=== PATIENT | female | born 1980 | race Caucasian/White ===

== ENCOUNTER 2018-09-20 13:43 | Inpatient (IN) | payer OTHER ==
[2018-09-20] MEDS ORDERED: fentaNYL 100 MCG/2 ML INJ IVP ONE (14:47)
[2018-09-20] MEDS ORDERED: NS 1,000 ML IV ONE (14:47)
[2018-09-20 15:08] LABS: PLATELET COUNT 317 10^3/uL (150-400)
[2018-09-20] MEDS ORDERED: IOPAMIDOL (ISOVUE 370) 100 ML BTL IV ONE (16:14)
--- NOTE | 2018-09-20 16:22 | EDPHY ---
General - History Smoking Status: Never smoked Time Seen by Provider: 09/20/18 14:13 Narrative: CLINICAL IMPRESSION: Left lower quadrant abdominal pain ASSESSMENT/PLAN: 38-year-old female with a history of diabetes presents to the emergency department with left lower quadrant abdominal pain since last night, worsening throughout today and associated with nausea and 1 episode of emesis. No associated fever or chills. Hypertensive on arrival, no tachycardia, hypoxia, and she is nonseptic and nontoxic appearing. She does have significant left lower quadrant tenderness associated with guarding but no focal peritoneal findings. Labs show significant leukocytosis of 17 with left shift, no significant electrolyte imbalance or renal insufficiency. No evidence of UTI and she is not . No complaints of abnormal discharge. Pelvic ultrasound read by Radiology with no abnormality identified. CT scan ordered. Patient declined additional analgesics. Case was signed out to Natasha Butts at 5:[address] results. DIFFERENTIAL DX: Abdominal pain includes but not limited to urinary tract infection, pyelonephritis, infection, ectopic , salpingitis, TOA, ovarian torsion, ovarian cyst, endometriosis, uterine fibroids, acute appendicitis, acute diverticulitis, small-bowel obstruction, constipation ED PROCEDURES: See lab and/or imaging results below ED COURSE: For o'clock p.m.: Discussed ultrasound results with Dr. Paz. No acute abnormality identified, no ovarian torsion, ovarian cyst, or substantial amount of free fluid in the pelvis. Ultrasound results discussed with the patient. She is declining additional analgesics at this time. Will pursue CT scan. Notable leukocytosis on labs. No other electrolyte abnormality. Urine studies normal. Not . CHIEF COMPLAINT: Left lower quadrant abdominal pain HPI: 38-year-old female presents to the emergency department with complaints of left lower quadrant abdominal pain since late last night. pain has become worse and more constant today. This is associated with nausea and vomiting. No diarrhea. She had a small bowel movement this morning. No fever/chills. She is 2 wks late on her period but adamantly denies . no abnormal complaints or vaginal discharge. No UTI symptoms or flank pain. No history of kidney stones. She reports a history of possible endometriosis in the past but never had exploratory laparoscopic procedure to confirm. She has had several normal pelvic ultrasounds in the past. She has a past medical history of diabetes. She has never been told she has diverticulosis. PAST MEDICAL HISTORY: Diabetes See nurse/triage notes for additional history if applicable Pertinent Past Surgical History: None reported Family History: Noncontributory Social History: Otherwise healthy here with her significant other REVIEW OF SYSTEMS: All other systems negative Constitutional: No fever, no chills, appetite change. Cardiovascular: No chest pain, no palpitations. Respiratory: No cough, no shortness of breath. Gastrointestinal: Positive for abdominal pain, positive for vomiting, diarrhea. Genitourinary: No hematuria, dysuria, flank pain, pelvic pain Skin: No rashes, color change. PHYSICAL EXAM: General Appearance: Alert, oriented, appropriate, obese, cooperative, appears uncomfortable, nontoxic, VSS, no hypoxia. Respiratory: There are no retractions, lungs are clear to auscultation. Cardiac: Regular rate and rhythm, no murmurs or gallops. Gastrointestinal: Abdomen is soft, tender left lower quadrant with rebound tenderness. bowel sounds hypoactive, no masses/hernia Neurological: [ Alert and oriented x 3, CN 2-12 grossly intact Skin: Warm, dry, no rashes, no nodules on palpation. MEDICAL DECISION MAKING: Patient was seen independently. Secondary supervising physician at time of evaluation was Dr. Lane . Diagnosis: Left lower quadrant abdominal pain. New, requires workup Summary: See Assessment and Plan for summary of ED visit Clinical lab tests: ordered / reviewed. Independent visualization of images, tracing, or specimens: Yes. Decision to obtain medical records or history from someone other than the patient: no Review / Summarize previous medical records: None available Discussed patient with another provider: Radiology, ROGER Butts Patient Progress: stable at time of sign out to Natasha Butts. (Gigi Santos ) 6:45 p.m. I evaluated this patient. She has a moderately tender abdomen. I offered admission the hospital however she declines and is very much motivated to go home. I do think that she can succeed at home. Will give her IV antibiotics here and then switched to Augmentin. Discussed indications for returning such is unable to tolerate fluids or medications or worsening pain or fever. (Jigar Lane) Medical Decision Makin: Patient was turned over to myself by Gigi PEARSON. I introduced myself to the patient, patient is obese, very tender in the left lower quadrant with mild voluntary guarding. CT still pending at this time. 1844: Case discussed with radiologist, patient with acute sigmoid diverticulitis without evidence of abscess or perforation. There is free fluid noted in the pelvis with extensive inflammation down to the bladder wall. There is fullness at the level of the cervix with recommendation for follow-up with OBGYN and repeat Pap smear. Results discussed with Dr. Lane, he will evaluate this patient at this time. Rocephin and metronidazole ordered. 1905: Patient now febrile, will give Tylenol and Zofran. 193: On repeat examination the patient reports her pain is generally controlled however she continues to feel poorly. Will admit to the hospital for further observation and management. Abdominal exam reveals soft abdomen with tenderness in the left lower quadrant, no evidence of a surgical abdomen. Case discussed with Dr. Swain who will be the admitting physician. (Tish Butts) - Diagnostics Imaging Results: Imaging Impressions Pelvic/Renal Ultrasound 09/20/18 14:47 Impression: Normal ultrasound pelvis. Mild amount of nonspecific fluid around the left ovary is identified. Findings discussed with Gigi PEARSON at 16:00 hour, 09/20/2018. Abdomen CT 09/20/18 16:06 Impression: 1. Acute sigmoid colon diverticulitis. Clinical correlation and follow-up to assure resolution are recommended. 2. Inflammatory change involving the superior left lateral aspect of the urinary bladder, likely secondary to the contiguous inflamed colon. Correlation with urinalysis is suggested. 3. "Fullness" at the level of the cervix. Correlation with a Pap smear is suggested. 4. Hepatomegaly with moderate steatosis. Findings were discussed with Francis Butts PAC at 18:38, on 09/20/2018. - Objective Vital Signs: Initial Vital Signs Temperature (C) 36.8 C 09/20/18 14:01 Heart Rate 98 09/20/18 14:01 Respiratory Rate 18 09/20/18 14:01 Blood Pressure 142/84 H 09/20/18 14:01 O2 Sat (%) 93 09/20/18 14:01 O2 Delivery Mode Room Air Allergies/Adverse Reactions: ibuprofen Allergy (Verified 09/20/18 14:00) Laboratory Results: Laboratory Results 09/20/18 15:00 09/20/18 15:00 09/20/18 09/20/18 09/20/18 15:00 15:00 14:30 WBC 17.14 10^3/uL H 10^3/uL (3.80-9.50) RBC 4.92 10^6/uL 10^6/uL (4.18-5.33) Hgb 14.0 g/dL g/dL (12.6-16.3) Hct 41.1 % % (38.0-47.0) MCV 83.5 fL fL (81.5-99.8) MCH 28.5 pg pg (27.9-34.1) MCHC 34.1 g/dL g/dL (32.4-36.7) RDW 13.6 % % (11.5-15.2) Plt Count 317 10^3/uL 10^3/uL (150-400) MPV 10.3 fL fL (8.7-11.7) Neut % (Auto) 80.0 % H % (39.3-74.2) Lymph % (Auto) 15.5 % % (15.0-45.0) [place] % (Auto) 3.7 % L % (4.5-13.0) Eos % (Auto) 0.2 % L % (0.6-7.6) Baso % (Auto) 0.2 % L % (0.3-1.7) Nucleat RBC Rel Count 0.0 % % (0.0-0.2) Absolute Neuts (auto) 13.72 10^3/uL H 10^3/uL (1.70-6.50) Absolute Lymphs (auto) 2.65 10^3/uL 10^3/uL (1.00-3.00) Absolute Monos (auto) 0.63 10^3/uL 10^3/uL (0.30-0.80) Absolute Eos (auto) 0.04 10^3/uL 10^3/uL (0.03-0.40) Absolute Basos (auto) 0.04 10^3/uL 10^3/uL (0.02-0.10) Absolute Nucleated RBC 0.00 10^3/uL 10^3/uL (0-0.01) Immature Gran % 0.4 % % (0.0-1.1) Immature Gran # 0.06 10^3/uL 10^3/uL (0.00-0.10) Sodium 135 mEq/L mEq/L (135-145) Potassium 3.7 mEq/L mEq/L (3.5-5.2) Chloride 104 mEq/L mEq/L (97-110) Carbon Dioxide 21 mEq/l L mEq/l (22-31) Anion Gap 10 mEq/L mEq/L (6-14) BUN 8 mg/dL mg/dL (7-23) Creatinine 0.5 mg/dL L mg/dL (0.6-1.0) Estimated GFR > 60 Glucose 213 mg/dL H mg/dL (70-100) Calcium 9.0 mg/dL mg/dL (8.5-10.4) Urine Color YELLOW Urine Appearance CLEAR Urine pH 5.0 (5.0-7.5) Ur Specific [place] 1.022 (1.002-1.030) Urine Protein NEGATIVE (NEGATIVE) Urine Ketones TRACE H (NEGATIVE) Urine Blood NEGATIVE (NEGATIVE) Urine Nitrate NEGATIVE (NEGATIVE) Urine Bilirubin NEGATIVE (NEGATIVE) Urine Urobilinogen NEGATIVE EU EU (0.2-1.0) Ur Leukocyte Esterase NEGATIVE (NEGATIVE) Urine RBC NONE SEEN /hpf /hpf (0-3) Urine WBC 1-3 /hpf /hpf (0-3) Ur Epithelial Cells TRACE /lpf /lpf (NONE-1+) Urine Mucus TRACE /lpf /lpf (NONE-1+) Urine Glucose 3+ H (NEGATIVE) Urine Test 09/20/18 14:30 WBC RBC Hgb Hct MCV MCH MCHC RDW Plt Count MPV Neut % (Auto) Lymph % (Auto) [place] % (Auto) Eos % (Auto) Baso % (Auto) Nucleat RBC Rel Count Absolute Neuts (auto) Absolute Lymphs (auto) Absolute Monos (auto) Absolute Eos (auto) Absolute Basos (auto) Absolute Nucleated RBC Immature Gran % Immature Gran # Sodium Potassium Chloride Carbon Dioxide Anion Gap BUN Creatinine Estimated GFR Glucose Calcium Urine Color Urine Appearance Urine pH Ur Specific [place] Urine Protein Urine Ketones Urine Blood Urine Nitrate Urine Bilirubin Urine Urobilinogen Ur Leukocyte Esterase Urine RBC Urine WBC Ur Epithelial Cells Urine Mucus Urine Glucose Urine Test NEGATIVE Medications Given: Ondansetron HCl (Zofran) 4 mg IVP Q4 PRN PRN Reason: Nausea/Vomiting, Can't Take PO Stop: 03/19/19 19:05 Last Admin: 09/20/18 19:08 Dose: 4 mg Discontinued Medications Acetaminophen (Tylenol) 1,000 mg PO EDNOW ONE Stop: 09/20/18 19:07 Last Admin: 09/20/18 19:09 Dose: 1,000 mg Fentanyl (Sublimaze) 50 mcg IVP EDNOW ONE Stop: 09/20/18 14:48 Last Admin: 09/20/18 14:57 Dose: 50 mcg Sodium Chloride (Ns) 1,000 mls @ 0 mls/hr IV EDNOW ONE; Wide Open PRN Reason: Protocol Stop: 09/20/18 14:48 Last Admin: 09/20/18 14:57 Dose: 1,000 mls Ceftriaxone Sodium/Dextrose (Rocephin 1 Gm (Premix)) 50 mls @ 100 mls/hr IV EDNOW ONE PRN Reason: Protocol Stop: 09/20/18 19:13 Last Admin: 09/20/18 18:59 Dose: 50 mls Departure - Departure Clinical Impression: Diverticulitis of sigmoid colon Condition: Good
[2018-09-20] MEDS ORDERED: ACETAMINOPHEN 500 MG TAB ONE (19:04)
[2018-09-20] MEDS ORDERED: ONDANSETRON 4 MG/2 ML VIAL ONE (19:05)
[2018-09-20] MEDS ORDERED: ONDANSETRON 4 MG/2 ML VIAL IVP PRN ×2 (19:06→20:29)
[2018-09-20] MEDS ORDERED: ACETAMINOPHEN 500 MG TAB PO ONE (19:06)
[2018-09-20] MEDS ORDERED: HYDROCODONE/APAP 5/325 TAB PO PRN (20:29)
[2018-09-20] MEDS ORDERED: oxyCODONE IR 5 MG TAB PO PRN (20:29)
[2018-09-20] MEDS ORDERED: ZOLPIDEM TARTRATE 5 MG TAB PO PRN (20:29)
[2018-09-20] MEDS ORDERED: ACETAMINOPHEN 325 MG TAB PO PRN (20:29)
[2018-09-20] MEDS ORDERED: HYDROmorphONE/DILAUDID 1 MG/ML INJ IVP PRN (20:29)
[2018-09-20] MEDS ORDERED: PROMETHAZINE HCL 25 MG/ML INJ IVP PRN (20:29)
[2018-09-20] MEDS ORDERED: ONDANSETRON DISINTEGRATING 4 MG TAB PO PRN (20:29)
[2018-09-20] MEDS ORDERED: D50W 25 GM/50 ML SYR IVP PRN (20:32)
--- NOTE | 2018-09-20 20:34 | PDGENHP ---
History and Physical - Chief Complaint LLQ abd pain - History of Present Illness 38 yo F with PMH of DM2 presenting with acute onset of LLQ abdominal pain. She notes the pain began last night and was initially crampy such that she thought it was due to her being about to go on her menstrual cycle. She tried heating pads but the pain got worse overnight rather than better. She took 4 acetaminophen tablets with some mild improvement in her pain. She had breakfast without incident, but around 11 am attempted to eat lunch and the pain got much worse and was associated with some nausea. She notes she has had GI issues for the last 1.5 years essentially since starting metformin for diabetes. She has frequent belching and flatulence as well as alternating diarrhea and constipation and these sxs are not getting better. She had an appointment to discuss this with her PCP but has not had that appointment yet. She never had pain similar to the pain she had today, she notes the pain now has improved and is down to a 2 or 3, she feels hungry but has not eaten anything since 11 am. She had her last BM this am and states it was normal. History Information - Allergies/Home Medication List Allergies/Adverse Reactions: naproxen Allergy (Mild, Unverified 09/20/18 19:49) Other-Enter Comments ibuprofen Allergy (Verified 09/20/18 19:49) Home Medications: metFORMIN HCL [Glucophage 1000 mg] 1,000 mg PO BIDMEAL 09/20/18 [Last Taken ] I have personally reviewed and updated: family history, medical history, social history, surgical history - Past Medical History diabetes type 2 (diagnosed 1.5 years ago, last A1c 8.2 this week) - Surgical History Reports: no pertinent surgical hx - Family History Positive for: cancer (mother with ovarian cancer, multiple family members on both sides with various cancers) - Social History Smoking Status: Never smoked Alcohol Use: Rarely Drug Use: Marijuana Additional social history: 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, 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, 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 Review of Systems Review of Systems: ROS: 10pt was reviewed & negative except for what was stated in HPI & below Physical Exam Physical Exam: Temp Pulse Resp BP Pulse Ox 37.4 C 104 H 18 124/84 H 94 09/20/18 19:54 09/20/18 19:54 09/20/18 19:54 09/20/18 19:01 09/20/18 19:54 Constitutional: not in pain, obese Eyes: PERRL, anicteric sclera Ears, Nose, Mouth, Throat: moist mucous membranes, hearing normal Cardiovascular: regular rate and rhythym, no murmur, rub, or gallop, No edema Respiratory: no respiratory distress, no rales or rhonchi Gastrointestinal: no palpable masses, tenderness (LLQ), No normoactive bowel sounds, No guarding, No rebound Genitourinary: no bladder tenderness Skin: warm, normal color Musculoskeletal: full muscle strength Neurologic: AAOx3 Psychiatric: interacting appropriately, not anxious, not encephalopathic Lab Data & Imaging Review 09/20/18 15:00 09/20/18 15:00 WBC 17.14 10^3/uL (3.80-9.50) H 09/20/18 15:00 RBC 4.92 10^6/uL (4.18-5.33) 09/20/18 15:00 Hgb 14.0 g/dL (12.6-16.3) 09/20/18 15:00 Hct 41.1 % (38.0-47.0) 09/20/18 15:00 MCV 83.5 fL (81.5-99.8) 09/20/18 15:00 MCH 28.5 pg (27.9-34.1) 09/20/18 15:00 MCHC 34.1 g/dL (32.4-36.7) 09/20/18 15:00 RDW 13.6 % (11.5-15.2) 09/20/18 15:00 Plt Count 317 10^3/uL (150-400) 09/20/18 15:00 MPV 10.3 fL (8.7-11.7) 09/20/18 15:00 Neut % (Auto) 80.0 % (39.3-74.2) H 09/20/18 15:00 Lymph % (Auto) 15.5 % (15.0-45.0) 09/20/18 15:00 [place] % (Auto) 3.7 % (4.5-13.0) L 09/20/18 15:00 Eos % (Auto) 0.2 % (0.6-7.6) L 09/20/18 15:00 Baso % (Auto) 0.2 % (0.3-1.7) L 09/20/18 15:00 Nucleat RBC Rel Count 0.0 % (0.0-0.2) 09/20/18 15:00 Absolute Neuts (auto) 13.72 10^3/uL (1.70-6.50) H 09/20/18 15:00 Absolute Lymphs (auto) 2.65 10^3/uL (1.00-3.00) 09/20/18 15:00 Absolute Monos (auto) 0.63 10^3/uL (0.30-0.80) 09/20/18 15:00 Absolute Eos (auto) 0.04 10^3/uL (0.03-0.40) 09/20/18 15:00 Absolute Basos (auto) 0.04 10^3/uL (0.02-0.10) 09/20/18 15:00 Absolute Nucleated RBC 0.00 10^3/uL (0-0.01) 09/20/18 15:00 Immature Gran % 0.4 % (0.0-1.1) 09/20/18 15:00 Immature Gran # 0.06 10^3/uL (0.00-0.10) 09/20/18 15:00 Sodium 135 mEq/L (135-145) 09/20/18 15:00 Potassium 3.7 mEq/L (3.5-5.2) 09/20/18 15:00 Chloride 104 mEq/L (97-110) 09/20/18 15:00 Carbon Dioxide 21 mEq/l (22-31) L 09/20/18 15:00 Anion Gap 10 mEq/L (6-14) 09/20/18 15:00 BUN 8 mg/dL (7-23) 09/20/18 15:00 Creatinine 0.5 mg/dL (0.6-1.0) L 09/20/18 15:00 Estimated GFR > 60 09/20/18 15:00 Glucose 213 mg/dL (70-100) H 09/20/18 15:00 Calcium 9.0 mg/dL (8.5-10.4) 09/20/18 15:00 Urine Color YELLOW 09/20/18 14:30 Urine Appearance CLEAR 09/20/18 14:30 Urine pH 5.0 (5.0-7.5) 09/20/18 14:30 Ur Specific [place] 1.022 (1.002-1.030) 09/20/18 14:30 Urine Protein NEGATIVE (NEGATIVE) 09/20/18 14:30 Urine Ketones TRACE (NEGATIVE) H 09/20/18 14:30 Urine Blood NEGATIVE (NEGATIVE) 09/20/18 14:30 Urine Nitrate NEGATIVE (NEGATIVE) 09/20/18 14:30 Urine Bilirubin NEGATIVE (NEGATIVE) 09/20/18 14:30 Urine Urobilinogen NEGATIVE EU (0.2-1.0) 09/20/18 14:30 Ur Leukocyte Esterase NEGATIVE (NEGATIVE) 09/20/18 14:30 Urine RBC NONE SEEN /hpf (0-3) 09/20/18 14:30 Urine WBC 1-3 /hpf (0-3) 09/20/18 14:30 Ur Epithelial Cells TRACE /lpf (NONE-1+) 09/20/18 14:30 Urine Mucus TRACE /lpf (NONE-1+) 09/20/18 14:30 Urine Glucose 3+ (NEGATIVE) H 09/20/18 14:30 Urine Test NEGATIVE 09/20/18 14:30 Visualized and Interpreted imaging results: Yes Interpretation: abd CT: acute sigmoid diverticulitis without perforation or abscess. pelvic US: negative Assessment & Plan Assessment: Diverticulitis of sigmoid colon (Acute) 38 yo F with hx of uncontrolled DM2 presenting with LLQ abdominal pain found to be 2/2 acute sigmoid diverticulitis # acute sigmoid diverticulitis: uncomplicated and overall her sxs are relatively mild, continues to have pain but so far has only required tylenol for pain control. Bowel sounds are diminished but she states she feels hungry, will start with clear liquids and advance as tolerated. IVF, pain meds, and started on IV cipro/flagyl for now--if able to tolerate PO will switch to oral abx in am and likely can dc in am. # uncontrolled DM2: patient has been having a lot of difficulty tolerating metformin and her A1c has increased from reportedly 7 several months ago to 8.2 today, will start SSI for now and on discharge would change her home medications --could try lower dose of metformin with glipizide to see if that improves her tolerance and improves her glucose control or consider discharge on insulin regimen to get better glucose control before transitioning back to oral agents. # leukocytosis: in the setting of diverticulitis, will trend # obesity: recommend lifestyle modification # observation status Patient new to my care. Old records reviewed and summarized as above. Care plan reviewed with ER doctor as above. Further hx obtained from patients partner present at bedside.
[2018-09-21] MEDS: NS 1,000 ML IV SCH ×2 (00:23→18:33)
[2018-09-21 05:34] LABS: PLATELET COUNT 292 10^3/uL (150-400)
[2018-09-21] MEDS: CIPROFLOXACIN 400 MG/DEXTROSE 200 ML IV SCH ×2 (08:30→20:49)
[2018-09-21] MEDS: INSULIN LISPRO 100 UNIT/ML SC SCH ×3 (08:35→18:16)
--- NOTE | 2018-09-21 14:00 | HOSPPROG ---
Hospitalist Progress Note Assessment/Plan: Diverticulitis of sigmoid colon (Acute) 38 yo F with hx of uncontrolled DM2 presenting with LLQ abdominal pain found to be 2/2 acute sigmoid diverticulitis. First encounter, chart reviewed. # acute sigmoid diverticulitis: -relatively mild -continues to have pain but so far has only required tylenol for pain control -Bowel sounds are absent -not hungry -NPO -IV cipro/flagyl for now #Suspected ileus -based on exam -NPO except Ice chips -ambulate # uncontrolled DM2: -Ha1C 8.2 -reviewed with pt -counseled lifestyle change -patient has been having a lot of difficulty tolerating metformin - A1c has increased from reportedly 7 several months ago to 8.2 today - will start SSI for now -would like to follow up with PCP regarding meds # leukocytosis: -in the setting of diverticulitis -improved # obesity: -recommend lifestyle modification #Elevated cholesterol -reviewed with pt -rec FU PCP -pt wishes to wait on medication # Dispo -change to inpt status -unable to tolerate PO -cont supportive care Subjective: Not hungry. Feels distended and bloated. Some mild pain. Objective: Vital Signs Temp Pulse Resp BP Pulse Ox 36.3 C 89 16 119/65 94 09/21/18 11:41 09/21/18 11:41 09/21/18 11:41 09/21/18 11:41 09/21/18 11:41 Laboratory Results 09/21/18 05:06 09/21/18 05:06 09/20/18 09/21/18 09/22/18 05:59 05:59 05:59 Intake Total 1650 Balance 1650 - Physical Exam Constitutional: appears nourished, not in pain, obese Eyes: PERRL, anicteric sclera, EOMI Ears, Nose, Mouth, Throat: moist mucous membranes, hearing normal, ears appear normal Cardiovascular: regular rate and rhythym, No JVD, No edema Respiratory: no respiratory distress, no rales or rhonchi, reduced air movement Gastrointestinal: distension, No normoactive bowel sounds, No ascites, No manzo 's sign Skin: warm, normal color, No mottled Musculoskeletal: normal joint ROM, no joint effusions, generalized weakness Neurologic: AAOx3 Psychiatric: interacting appropriately, not anxious, not encephalopathic, thought process linear ICD10 Worksheet Patient Problems: Problems Problem Status Onset Diverticulitis of sigmoid colon Acute
--- NOTE | 2018-09-21 20:45 | ASMTCMCOM ---
CM Note CM Note Notes: Pts case discussed w/ Annie Benitez NP regarding d/c POC. Pt is a 38 y/o female admitted for an acute sigmoid diverticulitis. Pt has an ileus. Pt should d/c independent when medically stable. No therapies ordered at this time. CM available for changes. Plan: Independent Date Signed: 09/21/2018 04:00 PM Electronically Signed By:ROCAEL Cooley
[2018-09-22] MEDS: NS 1,000 ML IV SCH (03:52)
[2018-09-22 07:34] VITALS: BP 118/78
[2018-09-22] MEDS: CIPROFLOXACIN 400 MG/DEXTROSE 200 ML IV SCH (08:19)
[2018-09-22] MEDS: INSULIN LISPRO 100 UNIT/ML SC SCH (08:19)
--- NOTE | 2018-09-22 15:11 | ASDISCHSUM ---
Discharge Information Plan Status:Home with No Needs Medically Cleared to Leave:09/21/2018 Discharge Date:09/22/2018 11:53 AM CM D/C Disposition:Home, Routine, Self-Care ADT D/C Disposition:Home, Routine, Self-Care Projected Discharge Date:09/22/2018 11:53 AM Transportation at D/C:Family Discharge Delay Reason: Follow-Up Date:09/22/2018 11:53 AM Discharge Slot:2 - 12:01 pm - 18:00 pm Final Diagnosis:Acute sigmoid diverticulitis, uncontrolled DM type 2, obesity, suspected ileus, leuk ocytosis, increased cholesterol Placement Information Patient Contact Information Contact Name:SHANNON Relationship:Other Address: City: [place] Phone: State/Zip Code: Email: Financial Information Financial Class:HMO and PPO Plans Primary Plan Desc:[employer] Primary Plan Number:[id number] Secondary Plan Desc: Secondary Plan Number: Assessment Information [facility] CM Progress Note CM Note CM Note Notes: Pts case discussed w/ Annie Benitez NP regarding d/c POC. Pt is a 38 y/o female admitted for an acute sigmoid diverticulitis. Pt has an ileus. Pt should d/c independent when medically stable. No therapies ordered at this time. CM available for changes. Plan: Independent Date Signed: 09/21/2018 04:00 PM Electronically Signed By:ROCAEL Cooley Case Management Discharge Plan Note Case Management Discharge Discharge Order Complete? Answers: Yes Patient to Obtain Answers: Independently Medications Transportation Arranged Answers: Family/Friends Transport will Pick (Date 09/22/2018 12:00 AM & Time) ASHLEY Complete Answers: No Notes: N/A Case Management Transport Answers: No Notes: N/A Form Complete Faxed Final Orders Answers: No Notes: N/A Agency/Facility Transfer Answers: No Notes: N/A Report Printed & Faxed to Receiving Agency Family Notified Answers: No Notes: Pt to notify Discharge Comments Notes: Reviewed chart, spoke with Annie Benitez NP. Pt to discharge home independently today with no identified needs. No IM/CRAMER forms signed, not applicable. Pt to follow up as directed. CM available for any further issues or concerns. Discharge Plan: Home independently Date Signed: 09/22/2018 03:08 PM Electronically Signed By:Sulma Mejias RN LACE LACE Length of stay for Answers: 1 day current admission Acuity / Level of Answers: Yes Care: Did the patient have an inpatient admission? Comorbidities - select Answers: Diabetes (uncontrolled or all that apply controlled) Other Notes: Diverticulitis, obesity , i ncreased cholesterol # of Emergency department Answers: 0 visits in the last 6 months Score: 6 Date Signed: 09/22/2018 03:10 PM Electronically Signed By:Sulma Mejias RN Intervention Information
--- NOTE | 2018-09-22 17:25 | GDS ---
DISCHARGE DIAGNOSES: 1. Acute sigmoid diverticulitis. 2. Suspected ileus. 3. Uncontrolled diabetes mellitus, type 2. 4. Leukocytosis. 5. Elevated cholesterol. PHYSICAL EXAM: GENERAL: The patient is alert. VITAL SIGNS: Afebrile at 36.6 , pulse88, respiratory rate 16. Blood pressure is 118/78. She is saturating 94 % on room air. I have seen and evaluated the patient on the day of discharge. HOSPITAL COURSE: The patient is a 38-year-old female who presented to the emergency room with complaints of abdominal pain. She was evaluated and diagnosed with: 1. Acute sigmoid diverticulitis. During this hospitalization, she was placed on bowel rest and treated with intravenous antibiotic therapy. Her symptoms have significantly improved. She has transitioned to oral antibiotics and will continue these in the outpatient setting. 2. Suspected ileus. This appears to have resolved. The patient is having bowel movements and passing gas. She is tolerating clear liquids and has no further complaints of distention. 3. Uncontrolled diabetes mellitus, type 2. The patient's hemoglobin A1c is 8.2. She was previously on metformin; however, she feels that this is not an effective drug for her. She will follow up with her primary care physician. She does not want me to adjust her medications at this time. 4. Leukocytosis. This is in the setting of acute infection, improved. 5. Obesity. I have had significant conversations with the patient, as well as her regarding lifestyle changes. 6. Elevated cholesterol. Again, she will follow up with her primary care physician regarding medical management and medication initiation. She does not want me to initiate medications at this time. DISCHARGE MEDICATIONS: Please refer to EMR form. I have provided the patient a prescription for Flagyl 500 mg q.i.d., as well as ciprofloxacin 500 mg b.i.d. FOLLOWUP: Will be with her primary care physician, Dr. Patty Garcia, in the next week. There are no pending studies. I have spent greater than 35 minutes in the care , coordination, and counseling of this patient prior to disposition. /[id number]/MODL MTDD
== END 2018-09-22 11:53 | disposition home or self-care (01) | DRG 392 ==
LOC: F3E 21:16 → OBSVTOIN 09-21 09:56
PROVIDERS: ADMIT Internal Medicine; ATTEND Internal Medicine
DX: K57.32 Diverticulitis of large intestine without perforation or abscess without bleeding (principal); K56.0 Paralytic ileus; E11.65 Type 2 diabetes mellitus with hyperglycemia; Z79.84 Long term (current) use of oral hypoglycemic drugs; E78.00 Pure hypercholesterolemia, unspecified; E66.09 Other obesity due to excess calories; Z68.39 Body mass index [BMI] 39.0-39.9, adult
CPT/HCPCS: 96374; G0378; J0696; J0744; J1815; J2405; J3010; Q9967